=== PATIENT | male | born 1995 | race Caucasian/White ===

== ENCOUNTER 2018-12-11 01:32 | Emergency (ER) | payer BC ==
[2018-12-11] MEDS ORDERED: Lidocaine 1% (PF) 30 ML VIAL ONE ×2 (02:33→03:49)
[2018-12-11] MEDS ORDERED: Ondansetron PF 4 MG/2 ML Vial ONE (03:10)
[2018-12-11] MEDS ORDERED: Morphine 2 MG/ML SYRINGE ONE ×2 (03:10→04:03)
[2018-12-11] MEDS ORDERED: Ketorolac Tromethamine 30 MG/ML VIAL ONE (04:03)
== END 2018-12-11 03:19 | disposition home or self-care (01) ==
LOC: ERS 01:32
DX: S01.311A Laceration without foreign body of right ear, initial encounter (principal); S20.411A Abrasion of right back wall of thorax, initial encounter; V86.59XA Driver of other special all-terrain or other off-road motor vehicle injured in nontraffic accident, initial encounter
CPT/HCPCS: 12013; 96374; 96375; J1885; J2001; J2270; J2405